=== PATIENT | male | born 1960 | race Hispanic/Latino ===

== ENCOUNTER 2018-10-05 16:56 | Inpatient (IN) | payer MEDICAID ==
[2018-10-05 16:56] VITALS: BMI 25.1
--- NOTE | 2018-10-05 17:22 | C.PDOC ---
History Of Present Illness 57 year old male presents to the ED for alcohol pre-screen. The patient admits to drinking 2 pints of vodka a day. Offers no medical complaints at this time. Time Seen by Provider: 10/05/18 17:15 Chief Complaint (Nursing): Substance Abuse History Per: Patient History/Exam Limitations: no limitations Past Medical History Reviewed: Historical Data, Nursing Documentation, Vital Signs Vital Signs: Last Vital Signs Temp 98 F 10/05/18 17:00 Pulse 118 H 10/05/18 17:00 Resp 20 10/05/18 17:00 BP 144/95 H 10/05/18 17:00 Pulse Ox 95 10/05/18 17:00 - Medical History PMH: Anxiety, Arthritis, Bronchitis, Fractures (fingers, arms, elbow), HTN, Migraine Denies: Depression, Chronic Kidney Disease Surgical History: Denies: Pacemaker - [facility] Procedures APPLICATION OF SPLINT (06/14/15) DETOXIFICATION SERVICES FOR SUBSTANCE ABUSE TREATMENT (07/16/17) EXCISION OF LIP LES NEC (05/14/04) INJECT/INFUSE NEC (02/12/14) LINEAR REP LID LACER (05/14/04) OTHER SKIN & SUBQ I D (06/10/05) Family History: States: Unknown Family Hx - Social History Hx Tobacco Use: No Hx Alcohol Use: Yes Hx Substance Use: No - Immunization History Hx Tetanus Toxoid Vaccination: No Hx Influenza Vaccination: No Hx Pneumococcal Vaccination: No Review Of Systems Except As Marked, All Systems Reviewed And Found Negative. Neurological: Positive for: Other (alcohol pre-screen. ) Physical Exam - Physical Exam Appears: Non-toxic, No Acute Distress, Other (tall. thin white male. anxious. ) Skin: Normal Color, Warm, Dry Head: Atraumatic, Normacephalic Eye(s): bilateral: Normal Inspection Oral Mucosa: Moist Neck: Normal ROM, Supple Chest: Symmetrical, No Deformity Cardiovascular: Rhythm Regular, No Murmur Respiratory: Normal Breath Sounds, No Rales, No Rhonchi, No Wheezing Gastrointestinal/Abdominal: Normal Exam, Soft, No Tenderness Neurological/Psych: Oriented x3 ED Course And Treatment - Laboratory Results Result Diagrams: 10/05/18 17:49 10/05/18 17:49 Lab Interpretation: Abnormal (tox + THC, ETOH 350 H) O2 Sat by Pulse Oximetry: 95 (RA) Pulse Ox Interpretation: Normal Progress Note: librium 50 mg PO for anxiety - Physician Consult Information Outcome Of Conversation: 2330: d/w Crisis, ok to admit to Detox Medical Decision Making Medical Decision Making: Plan: -Blood sent. -Urinalysis -Librium chronic alcohol abuse 2 pts vodka/day Disposition Doctor Will See Patient In The: Hospital Counseled Patient/Family Regarding: Studies Performed, Diagnosis - Disposition Disposition: HOSPITALIZED Disposition Time: 23:33 Condition: GOOD Forms: [facility] ([place]) - Clinical Impression Clinical Impression: Alcohol abuse - Scribe Statement The provider has reviewed the documentation as recorded by the Scribe (Leonela Darden) Provider Attestation: All medical record entries made by the Scribe were at my direction and person ally dictated by me. I have reviewed the chart and agree that the record accurately reflects my personal performance of the history, physical exam, medical decision making, and the department course for this patient. I have also personally directed, reviewed, and agree with the discharge instructions and disposition.
[2018-10-05 17:54] LABS: BASO # 0.1 K/uL (0.0-0.2); BASO % 2.1 % (0.0-2.0); EOS # 0.1 K/uL (0.0-0.7); EOS % 1.4 % (0.0-4.0); HEMOGLOBIN 14.8 g/dL (12.0-18.0); LYMPH # 1.8 K/uL (1.0-4.3); LYMPH % 30.9 % (20.0-40.0); MEAN CELL VOLUME 99.8 fL (80.0-94.0); MEAN CORPUSCULAR HEMOGLOBIN 34.2 pg (27.0-31.0); MEAN CORPUSCULAR HGB CONC 34.3 g/dL (33.0-37.0); MEAN PLATELET VOLUME 7.5 fL (7.2-11.7); MONO # 0.5 K/uL (0.0-0.8); MONO % 8.8 % (0.0-10.0); NEUT # 3.3 K/uL (1.8-7.0); NEUT % 56.8 % (50.0-75.0); NRBC % 0.1 % (0.0-2.0); RBC 4.33 Mil/uL (4.40-5.90); RED CELL DISTRIBUTION WIDTH 12.8 % (11.5-14.5); WHITE BLOOD COUNT 5.8 K/uL (4.8-10.8)
[2018-10-05 18:08] LABS: ALB/GLOB RATIO 1.6 (1.0-2.1); ALT/SGPT 114 U/L (21-72); AST/SGOT 185 U/L (17-59); BLOOD UREA NITROGEN 14 mg/dL (9-20); CALCIUM 9.3 mg/dl (8.6-10.4); GFR NON-AFRICAN AMERICAN > 60
[2018-10-05 18:35] LABS: URINE BILIRUBIN NEGATIVE (NEGATIVE); URINE BLOOD 1+ (NEGATIVE); URINE CLARITY Clear (Clear); URINE COLOR Yellow (YELLOW); URINE GLUCOSE (UA) NORMAL (Normal); URINE LEUKOCYTE ESTERASE NEG Leu/uL (Negative); URINE PROTEIN NEGATIVE (NEGATIVE)
[2018-10-05 18:46] LABS: BARBITURATES, UR NEGATIVE (NEGATIVE); BENZODIAZEPINES, UR POSITIVE (NEGATIVE); OPIATES, UR NEGATIVE (NEGATIVE); PHENCYCLIDINE, UR NEGATIVE (NEGATIVE)
[2018-10-05] MEDS ORDERED: Albuterol-Ipratrop 3 mg / 0.5 (3 ml) UD ONE (23:36)
--- NOTE | 2018-10-06 00:17 | PCM.BM ---
<Jj Hartman - Last Filed: 10/06/18 00:15> Treatment Plan Problems - Problems identified on initial assessmt potential for alcohol withdrawal Date Initiated: 10/06/18 Time Initiated: 00:16 Assessment reference: NA Status: Active Treatment assets and liabiliti Patient Assests: cooperative, cognitively intact, good interpersonal skills Patient Liabilities: substance abuse - Milieu Protocol Maintain good personal hygiene: daily Encourage regular showers, daily Remind patient to perform daily oral care, daily Assist patient to perform ADL's Maintain personal safety: every shift Educate patient to report safety concerns to staff, every shift Monitor environment for contraband/sharps Medication safety: Monitor for expected outcome, potential side effects: every shift, Assess barriers to learning: every shift, Assess readiness for medication education: every shift <Neftali Carballo - Last Filed: 10/06/18 10:22> - Diagnosis (1) Alcohol use disorder, severe, dependence Status: Acute Interventions: 10/06/18 10:23 * Assess 7x/week regarding severity of withdrawal * Educate regarding risks, benefits, side effects and alternatives of medi cations * Use Motivational Interviewing for abstinence * Use CBT for relapse prevention * Medication management for withdrawal symptoms * Encourage medication assisted treatment * <Barbie Gracia - Last Filed: 10/10/18 08:52> Family Contact Family involvement: Zelalemy/SO not involved - Goals for Treatment Patient goals for treatment: Complete detox and transition to inpatient rehab- short terrm. Discharge/Continuing Care - Education Needs Education Needs: Patient Medication, Patient Diagnosis/Disease Process, Patient Coping Skills, Patient Anger Management skills, Patient Placement options, Patient Community resources - Discharge Discharge Criteria: No longer exhibiting s/s of withdrawal, Reduction of target symptoms Discharge to:: Substance Abuse Rehab - Treatment Team Participation Patient/Family/SO Statement: 10/10/18 08:52 "I wanna try to get in to [facility] if I can..." Discussed with Family/SO: No Was Patient/Family/SO present at Treatment Team Meeting: Yes
[2018-10-06] MEDS: Multiple Vitamins Tab PO SCH (09:58)
--- NOTE | 2018-10-06 10:27 | PCM.PSYCH ---
Initial Psychiatric Evaluation - Initial Psychiatric Evaluation Type of Admission: Voluntary Legal Status: Capacity Chief Complaint (in patient's own words): "I need detox" History of Present Illness and Precipitating Events: The pt is seen, chart reviewed, case discussed This is a 57 yo WM, single, no child, lives with his GF, disabled on SSI due to a fall from a 3 story building at work. He is here for alcohol detox; drinks up to 2 pints of alcohol x20 yrs. He had DTs but no seizures He also uses percocets and xanax 1-2 a day but denies over-using. He smokes MJ sometimes and cigarette 1 ppd He was in detox once, rehab once at [facility] many years ago He describes significant wdw sxs - given librium in ED. His liver is impaired, so ativan taper started. Denies other drug use He reports depressive and anxiety sxs Medical: HTN, broken discs, hernia, two knee replacement. Still has ongoing problems with medical issues Psych hx: PTSD Family psych hx: Denied Current Medications: Active Medications Generic Name Dose Route Start Last Admin Trade Name Erum PRN Reason Stop Dose Admin Clonidine HCl 0.1 mg 10/05/18 23:54 10/06/18 02:45 Catapres PO 0.1 mg Q4H PRN Administration Symptoms of alcohol withdrawl Folic Acid 1 mg 10/06/18 10:00 10/06/18 09:58 Folic Acid PO 1 mg DAILY NATALIYA Administration Hydroxyzine HCl 25 mg 10/05/18 23:56 10/06/18 02:45 Atarax PO 25 mg Q4H PRN Administration Pain, moderate (4-7) Lorazepam 1 mg 10/05/18 23:54 10/06/18 02:45 Ativan PO 1 mg Q4H PRN Administration Symptoms of alcohol withdrawl Lorazepam 2 mg 10/06/18 00:00 10/06/18 06:49 Ativan PO 10/10/18 23:59 2 mg Q6H NATALIYA Administration Taper Multivitamins 1 tab 10/06/18 10:00 10/06/18 09:58 Hexavitamin PO 1 tab DAILY NATALIYA Administration Nicotine 1 patch 10/06/18 10:00 10/06/18 09:58 Nicoderm Cq TD 1 patch DAILY NATALIYA Administration Thiamine HCl 100 mg 10/06/18 10:00 10/06/18 09:58 Vitamin B1 Tab PO 100 mg DAILY NATALIYA Administration Trazodone HCl 50 mg 10/05/18 23:54 Desyrel PO HS PRN Insomnia Past Psychiatric History - Past Psychiatric History Previous Treatment History: Intensive Outpatient Pertinent Medical Hx (Current Medical&Sleep Prob, Allergies): Allergies Allergy/AdvReac Type Severity Reaction Status Date / Time No Known Allergies Allergy Verified 10/05/18 17:06 No Known Home Med 10/05/18 Review of Systems - Psychiatric Psychiatric: Abnormal Sleep Pattern, Anhedonia, Anxiety, Behavioral Changes, Change in Appetite, Depression, Difficulty Concentrating, Irritability, Mood Swings. absent: Hallucinations, Homicidal Ideation, Paranoia, Suicidal Ideation Mental Status Examination - Personal Presentation Personal Presentation: Looks stated age - Affect Affect: Constricted - Motor Activity Motor Activity: Calm - Reliability in Providing Information Reliability in Providing Information: Good - Speech Speech: Organized - Mood Mood: Depressed, Anxious - Formal Thought Process Formal Thought Process: No Impairment - Cognitive Functions Orientation: Person, Place, Situation, Time Sensorium: Alert Attention/Concentration: Easily distracted Estimate of Intelligence: Average Judgement: Intact, as evidence by: Insight regarding need for hospitalization Memory: Recent intact, as evidence by: Ability to recall events of the day, Remote intact, as evidenced by: Abilit to recall sig. life events - Risk Risk: Seizure, Withdrawal, Diminished functioning - Strength & Assets Inventory Strength & Assets Inventory: Family support, Employment history, Cooperative - Limitations Limitations: Other DSM 5 DX - DSM 5 DSM 5 Diagnosis: Alcohol withdrawal Alcohol use d/o - severe Anxiety d/o - unspecified Depressive d/o - unspecified Tobacco use d/o - severe Cannabis use d/o - moderate PTSD - Recommended/Plan of Treatment Treatment Recommendations and Plan of Treatment: Taper with ativan Gabapentin for augmentation As needed medications All risks, benefits and alternatives of the meds discussed, and the pt agreed and understood. Attend groups and activities Supportive therapy and psychoeducation MN for abstinence CBT for relapse prevention Encourage MAT Refer to rehab or IOP, and self-help groups Teach healthy lifestyle methods, i.e. diet, exercise, meditation Smoking cessation with MN Nicotine patch if needed 34 min Projected ELOS: 4-5 days Prognosis: good - Smoking Cessation Smoking Cessation Initiated: Yes
[2018-10-07] MEDS: Multiple Vitamins Tab PO SCH (09:35)
--- NOTE | 2018-10-07 10:58 | PCM.PYCHPN ---
Psychiatric Progress Note - Psychiatric Progress Note Patient seen today, length of contact: 15 min Patient Chief Complaint: I am still withdrawing Problems Identified/Issues Discussed: Patient was seen and evaluated, chart reviewed and discussed with the staff. Patient still reports withdrawal symptoms and still reports sweating, headaches, anxiety and shakes. Patient reports depressed mood, poor sleep and poor appetite. However he denies any feelings of hopelessness and helplessness. He denies any auditory hallucinations or any paranoia. He is compliant with the withdrawal medications and denies any side effects Symptoms are improving but he needs to stay longer for further stabilization. Supportive therapy was given Medication Change: Yes Medical Record Reviewed: Yes Mental Status Examination - Cognitive Function Orientation: Person, Place, Situation, Time Memory: Intact Attention: WNL Concentration: Poor Association: WNL Fund of Knowledge: Poor - Mood Mood: Depressed, Anxious - Affect Affect: Constricted - Speech Speech: Soft - Formal Thought Process Formal Thought Process: No Impairment - Suicidal Ideation Suicidal Ideation: No - Homicidal Ideation Homicidal Ideation: No Goal/Treatment Plan - Goal/Treatment Plan Need for Continued Stay: Failed transitioning, Severe functional impairment Progress Toward Problem(s) and Goals/Treatment Plan: Alcohol withdrawal Alcohol use d/o - severe Anxiety d/o - unspecified Depressive d/o - unspecified Tobacco use d/o - severe Cannabis use d/o - moderate PTSD Taper with ativan Gabapentin for augmentation As needed medications All risks, benefits and alternatives of the meds discussed, and the pt agreed and understood. Attend groups and activities Supportive therapy and psychoeducation NM for abstinence CBT for relapse prevention Encourage MAT Refer to rehab or IOP, and self-help groups Teach healthy lifestyle methods, i.e. diet, exercise, meditation Smoking cessation with NM Nicotine patch if needed
[2018-10-08] MEDS: Multiple Vitamins Tab PO SCH (09:22)
[2018-10-08] MEDS: Pantoprazole 40 mg EC Tab PO SCH (13:11)
--- NOTE | 2018-10-08 21:01 | PCM.PYCHPN ---
Psychiatric Progress Note - Psychiatric Progress Note Patient seen today, length of contact: 15 min Patient Chief Complaint: I'm feeling little better but but I have pain in my chest for last 2 months. Problems Identified/Issues Discussed: Patient seen, chart reviewed, case discussed with the staff. Issues related to illness and treatment were discussed with the patient and staff. Reported compliant with treatment with no adverse affects. Tolerating treatment very well. Patient reported feeling better, also complaining about retrosternal chest pain for last 2 months. Patient denied any other symptoms including sweating, shortness of breath, dizziness. Will order EKG and if abnormal will call medicine. Mood reported as anxious. Affect appropriate. Calm and cooperative. Awake, alert and oriented 3. Speech soft with good eye contact. Aftercare discussed with the patient. At the time of evaluation, patient denied any delusions, auditory or visual hallucinations, suicidal ideations or homicidal ideations. Medical Problems: Hypertension Diagnostic Results: Reviewed DSM 5 Symptoms Update: Some improvement with treatment. Medication Change: No Medical Record Reviewed: Yes Consults ordered or reviewed: Medical consult if abnormal EKG. Mental Status Examination - Cognitive Function Orientation: Person, Place, Situation, Time Memory: Intact Attention: WNL Concentration: WN Association: [facility] Fund of Knowledge: [facility] Decription of patient's judgement and insights: Fair - Mood Mood: Anxious - Affect Affect: Other (Appropriate) - Speech Speech: Soft - Formal Thought Process Formal Thought Process: No Impairment Psychotic Thoughts and Behaviors: None - Suicidal Ideation Suicidal Ideation: No - Homicidal Ideation Homicidal Ideation: No Goal/Treatment Plan - Goal/Treatment Plan Need for Continued Stay: Remain at risks for inpatient hospitalization, Discharge may exacerbated symptoms, Severe functional impairment Progress Toward Problem(s) and Goals/Treatment Plan: Some improvement with treatment. Patient/staff education. Supportive therapy. CBT for relapse prevention. TN for abstinence. EKG. Will call medicine if abnormal EKG. We will also start Protonix 40 mg daily. Patient agreed. Continue rest of the treatment as before. Estimated Date of D/C: 10/09/18 - Smoking Cessation Smoking Cessation Initiated: Yes
--- NOTE | 2018-10-08 21:11 | CP.PCM.CON ---
<Renetta Barreto - Last Filed: 10/09/18 07:09> History of Present Illness - History of Present Illness History of Present Illness: Consult Note CC " right sided chest pain" HPI: Patient is a 57 year old male with history of alcohol abuse who initially presented for alcohol detox. While in detox, patient stated that he had 2 month history of intermittent right sided chest pain described as pressure-like that radiates up the right side of his neck and into his head. He denies any aggravating or alleviating factors. He states that his pain comes all of a sudden and last about 20 minutes and resolves on its own. He states his last episode of chest pain was about 2 hours ago, and resolved on its own. He denies fevers, chills, headache, dizziness, shortness of breath, palpitations, abdominal pain, nausea, vomiting, diarrhea, constipation, leg pain, urinary complaints. EKG done after patient complained of chest pain revealed flattening of T waves. PMH: alcoholic hepatitis PSH: lipoma removal from right forehead, hernia hydrocele at age 18 Famil hx: Paternal side: cardiac issues including AK in 50s. Maternal side: lung cancer Social hx: SMokes 1ppd x27 years, Drinks 2 pints of vodka daily. Smokes marijuana occasionally, used to use cocaine 20 years ago, not currently Home meds: Percocet, Xanax Allergies: NKDA PMD: in [place] Review of Systems - Constitutional Constitutional: absent: Chills, Fever, Headache, Sleep Apnea - EENT Eyes: absent: Change in Vision, Spots in Vision Ears: absent: Decreased Hearing Nose/Mouth/Throat: absent: Nasal Congestion, Sore Throat - Cardiovascular Cardiovascular: Chest Pain. absent: Dyspnea, Syncope - Respiratory Respiratory: absent: Cough, Dyspnea - Gastrointestinal Gastrointestinal: absent: Abdominal Pain, Nausea, Vomiting - Genitourinary Genitourinary: absent: Change in Urinary Stream, Dysuria - Musculoskeletal Musculoskeletal: absent: Back Pain - Neurological Neurological: absent: Abnormal Hearing, Abnormal Movements, Confusion - Psychiatric Psychiatric: absent: Anxiety, Depression Past Patient History - Infectious Disease Hx of Infectious Diseases: None - Tetanus Immunizations Tetanus Immunization: Unknown - Past Medical History & Family History Past Medical History?: No - Past Social History Smoking Status: Heavy Smoker > 10 Cigarettes Daily - CARDIAC Hx Hypertension: Yes Hx Pacemaker: No - PULMONARY Hx Bronchitis: Yes - NEUROLOGICAL Hx Migraine: Yes - HEENT Hx HEENT Problems: No - RENAL Hx Chronic Kidney Disease: No - ENDOCRINE/METABOLIC Hx Endocrine Disorders: No - HEMATOLOGICAL/ONCOLOGICAL Hx Cancer: No Hx Human Immunodeficiency Virus (HIV): No - INTEGUMENTARY Hx Dermatological Problems: No Other/Comment: history of lipoma right forehead - MUSCULOSKELETAL/RHEUMATOLOGICAL Hx Arthritis: Yes Hx Falls: No Hx Fractures: Yes (fingers, arms, elbow) - GASTROINTESTINAL Hx Gastrointestinal Disorders: Yes Hx Fatty Liver Disease: Yes Hx Gastroesophageal Reflux: Yes Hx Liver Failure: Yes - GENITOURINARY/GYNECOLOGICAL Hx Sexually Transmitted Disorders: No - PSYCHIATRIC Hx Substance Use: No - SURGICAL HISTORY Other/Comment: tumor right forehead - ANESTHESIA Hx Anesthesia: No Hx Anesthesia Reactions: No Hx Malignant Hyperthermia: No Meds Allergies/Adverse Reactions: Allergies Allergy/AdvReac Type Severity Reaction Status Date / Time No Known Allergies Allergy Verified 10/05/18 17:06 - Medications Medications: Current Medications Clonidine HCl (Catapres) 0.1 mg PO Q4H PRN PRN Reason: Symptoms of alcohol withdrawl Last Admin: 10/07/18 17:22 Dose: 0.1 mg Folic Acid (Folic Acid) 1 mg PO DAILY [facility] Last Admin: 10/08/18 09:22 Dose: 1 mg Gabapentin (Neurontin) 300 mg PO BID [facility] Last Admin: 10/08/18 17:06 Dose: 300 mg Hydroxyzine HCl (Atarax) 25 mg PO Q4H PRN PRN Reason: Pain, moderate (4-7) Last Admin: 10/07/18 17:22 Dose: 25 mg Lorazepam (Ativan) 1 mg PO Q4H PRN PRN Reason: Symptoms of alcohol withdrawl Last Admin: 10/07/18 19:42 Dose: 1 mg Lorazepam (Ativan) 2 mg PO Q8H [facility]; Taper Stop: 10/10/18 23:59 Last Admin: 10/08/18 16:03 Dose: 2 mg Multivitamins (Hexavitamin) 1 tab PO DAILY [facility] Last Admin: 10/08/18 09:22 Dose: 1 tab Nicotine (Nicoderm Cq) 1 patch TD DAILY [facility] Last Admin: 10/08/18 09:22 Dose: 1 patch Pantoprazole Sodium (Protonix Ec Tab) 40 mg PO DAILY [facility] Last Admin: 12/26/18 13:11 Dose: 40 mg Thiamine HCl (Vitamin B1 Tab) 100 mg PO DAILY [facility] Last Admin: 10/08/18 09:22 Dose: 100 mg Trazodone HCl (Desyrel) 100 mg PO HS PRN PRN Reason: Insomnia Physical Exam - Constitutional Appears: Well, Non-toxic, No Acute Distress - Head Exam Head Exam: ATRAUMATIC, NORMOCEPHALIC - Eye Exam Eye Exam: EOMI, PERRL. absent: Conjunctival injection, Periorbital swelling - ENT Exam ENT Exam: Mucous Membranes Moist - Neck Exam Neck exam: Positive for: Full Rom. Negative for: Lymphadenopathy, Tenderness, Thyromegaly - Respiratory Exam Respiratory Exam: Clear to Auscultation Bilateral, NORMAL BREATHING PATTERN. absent: Rales, Rhonchi, Wheezes, Respiratory Distress, Stridor - Cardiovascular Exam Cardiovascular Exam: REGULAR RHYTHM, +S1, +S2. absent: Gallop, Rubs, Systolic Murmur - GI/Abdominal Exam GI & Abdominal Exam: Normal Bowel Sounds, Soft. absent: Distended, Firm, Guarding, Hernia, Tenderness - Extremities Exam Extremities exam: Positive for: normal capillary refill, pedal pulses present. Negative for: calf tenderness, pedal edema - Back Exam Back exam: absent: CVA tenderness (L), CVA tenderness (R) - Neurological Exam Neurological exam: Alert, CN II-XII Intact, Oriented x3 Results - Vital Signs Recent Vital Signs: Last Vital Signs Temp 97.8 F 10/08/18 17:43 Pulse 88 10/08/18 17:43 Resp 18 10/08/18 17:43 BP 120/86 10/08/18 17:43 Pulse Ox 96 10/08/18 17:43 - Labs Result Diagrams: 10/05/18 17:49 10/05/18 17:49 Assessment & Plan - Assessment and Plan (Free Text) Assessment: 57 year old male with history of alcoholic hepatitis who presented for alcohol detox, complaining of intermittent chest pain ongoing for 2 months. Plan: Chest pain, r/o ACS Follow up troponin in AM Initial EKG: flattened T waves Repeat EKG and trop in AM. UDS positive for cannabinoids, benzo ASA 81mg PO Heparin 5000 units SC Q8 History of alcohol abuse Psych on board for detox Case discussed with Dr. Abril Barreto, PGY1 <Braden Samuels P - Last Filed: 10/09/18 07:55> Meds - Medications Medications: Current Medications Aspirin (Aspirin Chewable) 81 mg PO DAILY [facility] Clonidine HCl (Catapres) 0.1 mg PO Q4H PRN PRN Reason: Symptoms of alcohol withdrawl Last Admin: 10/07/18 17:22 Dose: 0.1 mg Folic Acid (Folic Acid) 1 mg PO DAILY [facility] Last Admin: 10/08/18 09:22 Dose: 1 mg Gabapentin (Neurontin) 300 mg PO BID [facility] Last Admin: 10/08/18 17:06 Dose: 300 mg Heparin Sodium (Porcine) (Heparin) 5,000 units SC Q8 [facility] Last Admin: 10/09/18 06:40 Dose: 5,000 units Hydroxyzine HCl (Atarax) 25 mg PO Q4H PRN PRN Reason: Pain, moderate (4-7) Last Admin: 10/07/18 17:22 Dose: 25 mg Lorazepam (Ativan) 1 mg PO Q4H PRN PRN Reason: Symptoms of alcohol withdrawl Last Admin: 10/07/18 19:42 Dose: 1 mg Lorazepam (Ativan) 2 mg PO Q12H [facility]; Taper Stop: 10/10/18 23:59 Last Admin: 10/08/18 23:56 Dose: 2 mg Multivitamins (Hexavitamin) 1 tab PO DAILY [facility] Last Admin: 10/08/18 09:22 Dose: 1 tab Nicotine (Nicoderm Cq) 1 patch TD DAILY [facility] Last Admin: 10/08/18 09:22 Dose: 1 patch Pantoprazole Sodium (Protonix Ec Tab) 40 mg PO DAILY [facility] Last Admin: 10/08/18 13:11 Dose: 40 mg Thiamine HCl (Vitamin B1 Tab) 100 mg PO DAILY [facility] Last Admin: 10/08/18 09:22 Dose: 100 mg Trazodone HCl (Desyrel) 100 mg PO HS PRN PRN Reason: Insomnia Last Admin: 10/08/18 21:24 Dose: 100 mg Results - Vital Signs Recent Vital Signs: Last Vital Signs Temp 97.1 F L 10/09/18 06:12 Pulse 80 10/09/18 06:12 Resp 18 10/09/18 06:12 BP 110/85 10/09/18 06:12 Pulse Ox 97 10/09/18 06:12 - Labs Result Diagrams: 10/09/18 06:30 10/09/18 06:30 Labs: Laboratory Results - last 24 hr 10/09/18 10/09/18 06:30 06:30 WBC 5.5 RBC 3.99 L Hgb 14.0 Hct 40.3 MCV 101.0 H MCH 35.1 H MCHC 34.8 RDW 12.0 Plt Count 149 MPV 8.6 Neut % (Auto) 60.8 Lymph % (Auto) 22.8 [place] % (Auto) 11.3 H Eos % (Auto) 4.4 H Baso % (Auto) 0.7 Neut # (Auto) 3.3 Lymph # (Auto) 1.2 [place] # (Auto) 0.6 Eos # (Auto) 0.2 Baso # (Auto) 0.0 Sodium 136 Potassium 4.3 Chloride 101 Carbon Dioxide 29 Anion Gap 10 BUN 15 Creatinine 1.0 Est GFR ( Amer) > 60 Est GFR (Non-Af Amer) > 60 Random Glucose 122 H D Calcium 8.6 Phosphorus 3.9 Magnesium 1.9 Total Bilirubin 1.7 H AST 135 H D ALT 155 H D Alkaline Phosphatase 63 Troponin I < 0.0120 Total Protein 6.5 Albumin 4.0 Globulin 2.5 Albumin/Globulin Ratio 1.6 Attending/Attestation - Attestation I have personally seen and examined this patient.: Yes I have fully participated in the care of the patient.: Yes I have reviewed all pertinent clinical information: Yes Notes (Text): 10/09/18 07:51 Atypical chest pain Abnormal ekg likely from lead placement Alcohol abuse, now here for detox. Plan Repeat EKG troponin this am. Counselled about substance abuse See orders for detail.
[2018-10-09 06:54] LABS: BASO % 0.7 % (0.0-2.0); EOS # 0.2 K/uL (0.0-0.7); EOS % 4.4 % (0.0-4.0); LYMPH # 1.2 K/uL (1.0-4.3); LYMPH % 22.8 % (20.0-40.0); MEAN CORPUSCULAR HEMOGLOBIN 35.1 pg (27.0-31.0); MEAN CORPUSCULAR HGB CONC 34.8 g/dL (33.0-37.0); MEAN PLATELET VOLUME 8.6 fL (7.2-11.7); MONO # 0.6 K/uL (0.0-0.8); MONO % 11.3 % (0.0-10.0); NEUT # 3.3 K/uL (1.8-7.0); NEUT % 60.8 % (50.0-75.0); NRBC % 0.1 % (0.0-2.0); RBC 3.99 Mil/uL (4.40-5.90); WHITE BLOOD COUNT 5.5 K/uL (4.8-10.8)
[2018-10-09 07:43] LABS: ALB/GLOB RATIO 1.6 (1.0-2.1); ALT/SGPT 155 U/L (21-72); AST/SGOT 135 U/L (17-59); BLOOD UREA NITROGEN 15 mg/dL (9-20); CALCIUM 8.6 mg/dl (8.6-10.4); GFR NON-AFRICAN AMERICAN > 60
--- NOTE | 2018-10-09 09:30 | CP.PCM.PN ---
<Karen Weiss Y - Last Filed: 10/09/18 10:17> Subjective - Date & Time of Evaluation Date of Evaluation: 10/09/18 Time of Evaluation: 07:30 - Subjective Subjective: PGY-1 Medicine Progress Note for Dr. Boyd Patient was seen and examined today at bedside in no acute distress. Nurse reports no overnight events. Patient reports feeling better at this time, although he attributes it to laying down and resting. He was not experiencing chest pain at time of interview, saying that it comes and goes, the longest episode being about 30 minutes. He is experiencing some withdrawal tremors, but is overall feeling better. He is not happy with his apparent discharge from detox. Denies headache, shortness of breath, abdominal pain, n/v/c/d. Objective - Vital Signs/Intake and Output Vital Signs (last 24 hours): Temp Pulse Resp BP Pulse Ox 97.1 F L 80 18 110/85 97 10/09/18 06:12 10/09/18 06:12 10/09/18 06:12 10/09/18 06:12 10/09/18 06:12 - Medications Medications: Current Medications Aspirin (Aspirin Chewable) 81 mg PO DAILY [facility] Clonidine HCl (Catapres) 0.1 mg PO Q4H PRN PRN Reason: Symptoms of alcohol withdrawl Last Admin: 10/07/18 17:22 Dose: 0.1 mg Folic Acid (Folic Acid) 1 mg PO DAILY [facility] Last Admin: 10/08/18 09:22 Dose: 1 mg Gabapentin (Neurontin) 300 mg PO BID [facility] Last Admin: 10/08/18 17:06 Dose: 300 mg Heparin Sodium (Porcine) (Heparin) 5,000 units SC Q8 [facility] Last Admin: 10/09/18 06:40 Dose: 5,000 units Hydroxyzine HCl (Atarax) 25 mg PO Q4H PRN PRN Reason: Pain, moderate (4-7) Last Admin: 10/07/18 17:22 Dose: 25 mg Lorazepam (Ativan) 1 mg PO Q4H PRN PRN Reason: Symptoms of alcohol withdrawl Last Admin: 10/07/18 19:42 Dose: 1 mg Lorazepam (Ativan) 2 mg PO Q12H [facility]; Taper Stop: 10/10/18 23:59 Last Admin: 10/08/18 23:56 Dose: 2 mg Multivitamins (Hexavitamin) 1 tab PO DAILY [facility] Last Admin: 10/08/18 09:22 Dose: 1 tab Nicotine (Nicoderm Cq) 1 patch TD DAILY [facility] Last Admin: 10/08/18 09:22 Dose: 1 patch Pantoprazole Sodium (Protonix Ec Tab) 40 mg PO DAILY [facility] Last Admin: 10/08/18 13:11 Dose: 40 mg Thiamine HCl (Vitamin B1 Tab) 100 mg PO DAILY [facility] Last Admin: 10/08/18 09:22 Dose: 100 mg Trazodone HCl (Desyrel) 100 mg PO HS PRN PRN Reason: Insomnia Last Admin: 10/08/18 21:24 Dose: 100 mg - Labs Labs: 10/09/18 06:30 10/09/18 06:30 - Constitutional Appears: Non-toxic, No Acute Distress - Head Exam Head Exam: ATRAUMATIC, NORMOCEPHALIC - Eye Exam Eye Exam: EOMI, Normal appearance - ENT Exam ENT Exam: Mucous Membranes Dry - Respiratory Exam Respiratory Exam: Clear to Ausculation Bilateral, NORMAL BREATHING PATTERN. absent: Rales, Rhonchi, Wheezes - Cardiovascular Exam Cardiovascular Exam: REGULAR RHYTHM, +S1, +S2. absent: Gallop, Rubs, Murmur - GI/Abdominal Exam GI & Abdominal Exam: Soft, Normal Bowel Sounds. absent: Distended, Firm, Guarding, Tenderness - Extremities Exam Extremities Exam: Normal Capillary Refill. absent: Calf Tenderness - Neurological Exam Neurological Exam: Alert, Awake, Oriented x3 - Psychiatric Exam Psychiatric exam: Anxious, Normal Mood - Skin Skin Exam: Normal Color, Warm Assessment and Plan - Assessment and Plan (Free Text) Assessment: 57 year old male with history of alcoholic hepatitis who presented for alcohol detox, complaining of intermittent chest pain ongoing for 2 months. Plan: Chest pain r/o ACS - Initial EKG: flattened T waves - Trop neg - Repeat EKG unchanged - UDS pos for cannabinoids, benzos - ASA 81mg po daily Alcohol Abuse - BAL 350 on admission - all detox management per psych - currently Ativan taper PPx - DVT: Heparin 5000u sc q8 - GI: Protonix 40mg po daily - Diet: HHD Patient is cleared medically for discharge. He can get baby aspirin over the counter for home use. Medicine will sign off; please re-consult if necessary. d/w Dr. Deb Weiss PYG-[id number] <Hugo Boyd H - Last Filed: 10/09/18 18:27> Objective - Vital Signs/Intake and Output Vital Signs (last 24 hours): Temp Pulse Resp BP Pulse Ox 97.6 F 93 H 18 116/83 98 10/09/18 18:00 18 18:00 10/09/18 18:00 10/09/18 18:00 10/09/18 18:00 - Medications Medications: Current Medications Aspirin (Aspirin Chewable) 81 mg PO DAILY [facility] Last Admin: 10/09/18 09:34 Dose: 81 mg Clonidine HCl (Catapres) 0.1 mg PO Q4H PRN PRN Reason: Symptoms of alcohol withdrawl Last Admin: 10/07/18 17:22 Dose: 0.1 mg Folic Acid (Folic Acid) 1 mg PO DAILY [facility] Last Admin: 10/09/18 09:34 Dose: 1 mg Gabapentin (Neurontin) 300 mg PO BID [facility] Last Admin: 10/09/18 18:18 Dose: 300 mg Heparin Sodium (Porcine) (Heparin) 5,000 units SC Q8 [facility] Last Admin: 10/09/18 14:41 Dose: Not Given Hydroxyzine HCl (Atarax) 25 mg PO Q4H PRN PRN Reason: Pain, moderate (4-7) Last Admin: 10/09/18 18:18 Dose: 25 mg Lorazepam (Ativan) 1 mg PO Q4H PRN PRN Reason: Symptoms of alcohol withdrawl Last Admin: 10/09/18 09:42 Dose: 1 mg Lorazepam (Ativan) 2 mg PO Q12H [facility]; Taper Stop: 10/10/18 23:59 Last Admin: 10/09/18 13:13 Dose: 2 mg Multivitamins (Hexavitamin) 1 tab PO DAILY [facility] Last Admin: 10/09/18 09:34 Dose: 1 tab Nicotine (Nicoderm Cq) 1 patch TD DAILY [facility] Last Admin: 10/09/18 10:07 Dose: 1 patch Pantoprazole Sodium (Protonix Ec Tab) 40 mg PO DAILY [facility] Last Admin: 10/09/18 09:34 Dose: 40 mg Thiamine HCl (Vitamin B1 Tab) 100 mg PO DAILY [facility] Last Admin: 10/09/18 09:34 Dose: 100 mg Trazodone HCl (Desyrel) 100 mg PO HS PRN PRN Reason: Insomnia Last Admin: 10/08/18 21:24 Dose: 100 mg - Labs Labs: 10/09/18 06:30 10/09/18 06:30 Attending/Attestation - Attestation I have personally seen and examined this patient.: Yes I have fully participated in the care of the patient.: Yes I have reviewed all pertinent clinical information, including history, physical exam and plan: Yes Notes (Text): 10/09/18 18:26 Medical hospitalist: Patient was seen and examined by me. Agree with the above note by the resident The patient was not in any acute distress when I came and saw him. Reviewed the old EKGs and lab work. He is ok for discharge. He does not have any cardiac acute processes at this time. He still should follow up with his out patient physician Hugo Boyd
[2018-10-09] MEDS: Multiple Vitamins Tab PO SCH (09:34)
[2018-10-09] MEDS: Pantoprazole 40 mg EC Tab PO SCH (09:34)
--- NOTE | 2018-10-09 13:02 | RAD ---
Date of service: 10/09/2018 HISTORY: Rehab clearance COMPARISON: No prior. TECHNIQUE: Chest PA and lateral FINDINGS: LUNGS: No active pulmonary disease. PLEURA: No significant pleural effusion identified. No pneumothorax apparent. CARDIOVASCULAR: No aortic atherosclerotic calcification present. Normal cardiac size. No pulmonary vascular congestion. OSSEOUS STRUCTURES: No significant abnormalities. VISUALIZED UPPER ABDOMEN: Normal. OTHER FINDINGS: None. IMPRESSION: No active disease.
--- NOTE | 2018-10-09 17:39 | PCM.PYCHDC ---
Mental Status Examination - Mental Status Examination Orientation: Person, Place, Situation, Time Memory: Intact Mood: Anxious (Much less than before) Affect: Other (Appropriate) Speech: Appropriate Attention: WNL Concentration: WNL Association: WNL Fund of Knowledge: WNL Formal Thought Process: No Impairment Description of patient's judgement and insight: Fair Psychotic Thoughts and Behaviors: None Suicidal Ideation: No Current Homicidal Ideation?: No Discharge Summary - Discharge Note Reason for Hospitalization: Alcohol use disorder severe. Tobacco use disorder severe. Cannabis use disorder moderate. Anxiety disorder and specified Depressive disorder unspecified PTSD Laboratory Data: Abnormal Lab Results 10/09/18 10/09/18 06:30 06:30 WBC 5.5 RBC 3.99 L Hgb 14.0 Hct 40.3 MCV 101.0 H MCH 35.1 H MCHC 34.8 RDW 12.0 Plt Count 149 MPV 8.6 Neut % (Auto) 60.8 Lymph % (Auto) 22.8 [place] % (Auto) 11.3 H Eos % (Auto) 4.4 H Baso % (Auto) 0.7 Neut # (Auto) 3.3 Lymph # (Auto) 1.2 [place] # (Auto) 0.6 Eos # (Auto) 0.2 Baso # (Auto) 0.0 Sodium 136 Potassium 4.3 Chloride 101 Carbon Dioxide 29 Anion Gap 10 BUN 15 Creatinine 1.0 Est GFR ( Amer) > 60 Est GFR (Non-Af Amer) > 60 Random Glucose 122 H D Calcium 8.6 Phosphorus 3.9 Magnesium 1.9 Total Bilirubin 1.7 H AST 135 H D ALT 155 H D Alkaline Phosphatase 63 Troponin I < 0.0120 Total Protein 6.5 Albumin 4.0 Globulin 2.5 Albumin/Globulin Ratio 1.6 Consultations:: List each consultation separately and include: 1. Reason for request. 2. Findings. 3. Follow-up Consultations: Reviewed Summary of Hospital Course include:: 1. Description of specific treatment plan utilized for patients during their course of treatmen. 2. Summarize the time- course for resolution of acute symptoms and/or regressed behaviors. 3. Describe issues identified and worked on during hospitalization. 4. Describe medication utilized. 5. Describe medical problems identified and treated. 6. Reassessment of suicide risk Summary of Hospital Course: The pt is seen, chart reviewed, case discussed This is a 57 yo WM, single, no child, lives with his GF, disabled on SSI due to a fall from a 3 story building at work. He is here for alcohol detox; drinks up to 2 pints of alcohol x20 yrs. He had DTs but no seizures He also uses percocets and xanax 1-2 a day but denies over-using. He smokes MJ sometimes and cigarette 1 ppd He was in detox once, rehab once at [facility] many years ago He describes significant wdw sxs - given librium in ED. His liver is impaired, so ativan taper started. Denies other drug use He reports depressive and anxiety sxs Medical: HTN, broken discs, hernia, two knee replacement. Still has ongoing problems with medical issues Psych hx: PTSD Family psych hx: Denied During his stay in the hospital patient was treated with Ativan taper for alcohol withdrawal symptoms. Patient started feeling better. Patient was also started on other when necessary medications. Patient was attending groups and other activities on the unit. Yesterday patient reported that he has burning in his stomach area and also retrosternal chest pain for last 2 months. Patient denied any other symptoms. EKG was ordered which became abnormal. Medical consult was called. Patient was evaluated by medical team who ordered some more tests that became negative. Today patient was cleared medically and was ready for discharge. At the time of evaluation and discharge, patient was awake, alert and oriented 3, had no delusions, no auditory or visual hallucinations, no suicidal ideations or homicidal ideations at the time of evaluation. Patient was discharged in a stable condition. Patient will go to [facility] for follow-up care after discharge from the hospital. - Final Diagnosis (DSM 5) Condition upon Discharge: GOOD Disposition: HOME/ ROUTINE Follow-up Treatment Plan: Patient will go to [facility] for follow-up care after discharge from the hospital. Prescriptions/Medication Reconciliation: Gabapentin [Neurontin] 300 mg PO BID #60 cap Pantoprazole [Protonix EC Tab] 40 mg PO DAILY #30 ect traZODone [Desyrel] 100 mg PO HS PRN #30 tab PRN Reason: Insomnia - Smoking Cessation Smoking Cessation Medication prescribed: Yes - Antipsychotic Medications Pt discharged on 2 or more routine antipsychotic medications: No
--- NOTE | 2018-10-09 22:31 | CARD ---
APPROVED REPORT Date of service: 10/08/2018 EKG Measurement Heart [id number] <Conclusion> Normal sinus rhythm Anterolateral infarct, age undetermined Abnormal ECG
--- NOTE | 2018-10-09 22:32 | CARD ---
APPROVED REPORT Date of service: 10/08/2018 EKG Measurement Heart [id number] <Conclusion> Normal sinus rhythm Anterolateral infarct, age undetermined Abnormal ECG
[2018-10-10 09:25] VITALS: BP 110/80; PULSE 102; RESP 19; TEMP 98.1; O2SAT 100
[2018-10-10] MEDS: Multiple Vitamins Tab PO SCH (09:29)
[2018-10-10] MEDS: Pantoprazole 40 mg EC Tab PO SCH (09:29)
[2018-10-10] MEDS ORDERED: Influenza Vaccine 60 MCG/0.5 ML SYR (3 yr & up) IM ONE (09:30)
--- NOTE | 2018-10-10 19:25 | CARD ---
APPROVED REPORT Date of service: 10/09/2018 EKG Measurement Heart [id number] <Conclusion> Normal sinus rhythm Normal ECG
--- NOTE | 2018-10-10 23:33 | PCM.PYCHDC ---
Mental Status Examination - Mental Status Examination Orientation: Person, Place, Situation, Time Description of patient's judgement and insight: Fair Psychotic Thoughts and Behaviors: None Discharge Summary - Discharge Note Reason for Hospitalization: Alcohol use disorder severe. Tobacco use disorder severe. Cannabis use disorder moderate. Anxiety disorder and specified Depressive disorder unspecified PTSD Consultations:: List each consultation separately and include: 1. Reason for request. 2. Findings. 3. Follow-up Consultations: Reviewed Summary of Hospital Course include:: 1. Description of specific treatment plan utilized for patients during their course of treatmen. 2. Summarize the time- course for resolution of acute symptoms and/or regressed behaviors. 3. Describe issues identified and worked on during hospitalization. 4. Describe medication utilized. 5. Describe medical problems identified and treated. 6. Reassessment of suicide risk Summary of Hospital Course: The pt is seen, chart reviewed, case discussed This is a 57 yo WM, single, no child, lives with his GF, disabled on SSI due to a fall from a 3 story building at work. He is here for alcohol detox; drinks up to 2 pints of alcohol x20 yrs. He had DTs but no seizures He also uses percocets and xanax 1-2 a day but denies over-using. He smokes MJ sometimes and cigarette 1 ppd He was in detox once, rehab once at [facility] many years ago He describes significant wdw sxs - given librium in ED. His liver is impaired, so ativan taper started. Denies other drug use He reports depressive and anxiety sxs Medical: HTN, broken discs, hernia, two knee replacement. Still has ongoing problems with medical issues Psych hx: PTSD Family psych hx: Denied During his stay in the hospital patient was treated with Ativan taper for alcohol withdrawal symptoms. Patient started feeling better. Patient was also started on other when necessary medications. Patient was attending groups and other activities on the unit. Yesterday patient reported that he has burning in his stomach area and also retrosternal chest pain for last 2 months. Patient denied any other symptoms. EKG was ordered which became abnormal. Medical consult was called. Patient was evaluated by medical team who ordered some more tests that became negative. Today patient was cleared medically and was ready for discharge. At the time of evaluation and discharge, patient was awake, alert and oriented 3, had no delusions, no auditory or visual hallucinations, no suicidal ideations or homicidal ideations at the time of evaluation. Patient was discharged in a stable condition. Patient will go to [facility] for follow-up care after discharge from the hospital. - Final Diagnosis (DSM 5) Condition upon Discharge: GOOD Disposition: HOME/ ROUTINE Follow-up Treatment Plan: Patient will go to [facility] for follow-up care after discharge from the hospital. Prescriptions/Medication Reconciliation: Gabapentin [Neurontin] 300 mg PO BID #60 cap Pantoprazole [Protonix EC Tab] 40 mg PO DAILY #30 ect traZODone [Desyrel] 100 mg PO HS PRN #30 tab PRN Reason: Insomnia
== END 2018-10-10 10:10 | disposition home or self-care (01) | DRG 751 ==
LOC: C.ER 16:56 → C.7D 23:33
PROVIDERS: ADMIT Psychiatry & Neurology Psychiatry; ATTEND Psychiatry & Neurology Psychiatry
PROC: HZ2ZZZZ Detoxification Services for Substance Abuse Treatment (ICD-10-PCS; principal; 2018-10-05)
PROC: GZ3ZZZZ Medication Management (ICD-10-PCS; 2018-10-05)
PROC: HZ46ZZZ Group Counseling for Substance Abuse Treatment, Psychoeducation (ICD-10-PCS; 2018-10-05)
PROC: HZ59ZZZ Individual Psychotherapy for Substance Abuse Treatment, Supportive (ICD-10-PCS; 2018-10-05)
DX: F10.231 Alcohol dependence with withdrawal delirium (principal); F12.20 Cannabis dependence, uncomplicated; F17.210 Nicotine dependence, cigarettes, uncomplicated; F32.9 Major depressive disorder, single episode, unspecified; F43.10 Post-traumatic stress disorder, unspecified; I10 Essential (primary) hypertension; K21.9 Gastro-esophageal reflux disease without esophagitis; K70.0 Alcoholic fatty liver; Z96.659 Presence of unspecified artificial knee joint; Z79.899 Other long term (current) drug therapy; Y90.8 Blood alcohol level of 240 mg/100 ml or more